=== PATIENT | male | born 1945 | race Caucasian/White ===

== ENCOUNTER 2017-11-28 08:40 | Day surgery (SDC) | payer OTHER, BC ==
[2017-11-27 11:44] VITALS: BMI 31.6
[2017-11-28 09:20] LABS: BASO % 0.3 % (0-2.0); EOS % 0.2 % (0-4.5); HEMATOCRIT 39.8 % (35.4-49); HEMOGLOBIN 13.3 GM/dL (11.7-16.9); LYMPH % 6.2 % (8-40); MCH 32.3 pg (25.7-33.7); MCHC 33.4 g/dl (32.0-35.9); MEAN CELL VOLUME 96.9 fl (80-96); MEAN PLT VOLUME 7.2 fl (7.5-11.1); MONO % 8.1 % (3.8-10.2); NEUT % 85.2 % (42.8-82.8); PLATELET COUNT 287 K/MM3 (134-434); RBC 4.11 M/mm3 (4.00-5.60); RDW 15.6 % (11.9-15.9); WHITE BLOOD COUNT 10.5 K/mm3 (4.0-10.0)
[2017-11-28 09:32] LABS: INR 1.16 (0.82-1.09); PROTHROMBIN TIME (PATIENT) 13.1 SEC (9.98-11.88)
[2017-11-28 09:54] VITALS: TEMP 98.3
[2017-11-28] MEDS ORDERED: ACETAMINOPHEN 325 MG TABLET (FP) ONE (14:10)
[2017-11-28 14:48] VITALS: BP 162/88; PULSE 89
[2017-11-28 15:19] LABS: GLUCOSE,PLEURAL FLUID 14.104; TOTAL PROTEIN,PLEURAL FLUID 5.954
[2017-11-28 15:49] LABS: PLEURAL FLUID APPEARANCE CLOUDY; PLEURAL FLUID COLOR YELLOW; PLEURAL FLUID RBC 7612 /mm3
[2017-11-28 15:59] LABS: PLEURAL FLUID LYMPHOCYTES 11 %; PLEURAL FLUID MESOTHELIAL 33 %; PLEURAL FLUID MONOCYTE 37 %; PLEURAL FLUID NEUTROPHIL 18 %
--- NOTE | 2017-12-02 16:24 | PATH ---
Cytology Non-Gynecological Report Patient Name: ANGELLA UNDERWOOD Med. Rec. #: [id number] /Age/Gender: 1945 (Age: 72) / M Account: [id number] Location: RADIOLOGY Taken: 11/28/2017 Received: 11/28/2017 Reported: 12/02/2017 Physicians: Saroj Ahumada M.D. Specimen(s) Received A: RIGHT PLEURAL FLUID B: RIGHT PLEURAL FLUID Clinical History Pleural effusion Final Diagnosis A & B. PLEURAL FLUID, RIGHT, FOR CYTOLOGY: SATISFACTORY FOR EVALUATION. ATYPICAL. FEW COHESIVE CLUSTERS OF ATYPICAL CELLS IN A BACKGROUND OF MACROPHAGES AND MESOTHELIAL CELLS. Comment: Immunohistochemical stains performed at [place], [place] ([id number]) and interpreted at [facility] show CAROLYNE have diffuse positivity, while rare clusters show weak staining with MOC31. Scattered mesothelial cells are positive for calretinin and D2-40 in a background of numerous CD68+ macrophages. Nazario-Ep4/OSCAR is non-contributory due to high background staining. Proliferative marker, ki-67 utilized to evaluate this case. Suggest clinical/radiologic correlation. Findings discussed with Dr. Ahumada. Electronically Signed Emilie Del Rio M.D. Gross Description A. Approximately 50 cc of yellow fluid received fixed in 50% alcohol. Two cytofunnels and one cellblock prepared. B. Approximately 2000 cc of yellow fluid received fresh. Two cytofunnels and one cellblock prepared.
== END 2017-11-28 15:01 | disposition home or self-care (01) ==
LOC: JRADIR 08:40
PROVIDERS: ATTEND Internal Medicine
PROC: 0W993ZZ Drainage of Right Pleural Cavity, Percutaneous Approach (ICD-10-PCS; principal; 2017-11-28)
PROC: BB4BZZZ Ultrasonography of Pleura (ICD-10-PCS; 2017-11-28)
DX: J90 Pleural effusion, not elsewhere classified (principal)
CPT/HCPCS: 36415; 71045-TC-FY; 71046-TC-FY; 76942; 82042; 82150; 82438; 82945; 83615; 84157; 84311; 84478; 85025; 85610; 87070; 87075; 87102; 87116; 87205; 87206; 87210; 88108; 88305-TC; 89051